=== PATIENT | male | born 1980 | race African-American/Black ===

== ENCOUNTER 2017-06-16 09:51 | Emergency (ER) | payer MEDICAID | END 2017-06-16 13:45 | disposition home or self-care (01) | LOC: FTE 09:51 | DX: S49.92XA Unspecified injury of left shoulder and upper arm, initial encounter (principal); W18.30XA Fall on same level, unspecified, initial encounter; Y92.811 Bus as the place of occurrence of the external cause | CPT/HCPCS: 73030; 99283-25 ==